=== PATIENT | male | born 1980 | race Caucasian/White ===

== ENCOUNTER 2019-02-24 05:34 | Emergency (ER) | payer OTHER ==
[~2019-02-24] VITALS: Ht 170.2 cm; Wt 77.1 kg
[2019-02-24 05:42] VITALS: BP 140/99
[2019-02-24] MEDS ORDERED: IBUPROFEN 600600 M1 PO (06:08)
[2019-02-24] MEDS ORDERED: ULTRAM 50MG TAB50 MG PO (06:08)
== END 2019-02-24 06:13 | disposition home or self-care (01) ==
LOC: ER 05:34
DX: S93.492A Sprain of other ligament of left ankle, initial encounter (principal); W17.89XA Other fall from one level to another, initial encounter; Y93.89 Activity, other specified; Y92.89 Other specified places as the place of occurrence of the external cause; Y99.8 Other external cause status